=== PATIENT | female | born 1950 | race Two or more races ===

== ENCOUNTER 2017-09-01 09:45 | Outpatient (CLI) | payer BC | END 2017-09-01 23:59 | disposition home or self-care (01) | LOC: WOU 09:45 | PROVIDERS: ATTEND Podiatrist Foot & Ankle Surgery | DX: Z47.81 Encounter for orthopedic aftercare following surgical amputation (principal); Z89.411 Acquired absence of right great toe; E11.40 Type 2 diabetes mellitus with diabetic neuropathy, unspecified; E66.9 Obesity, unspecified; Z68.39 Body mass index [BMI] 39.0-39.9, adult; Z71.3 Dietary counseling and surveillance; Z79.84 Long term (current) use of oral hypoglycemic drugs; Z94.0 Kidney transplant status | CPT/HCPCS: 99205; A6253; A6402; G0463 ==

== ENCOUNTER 2017-09-11 09:55 | Outpatient (CLI) | payer BC | END 2017-09-11 23:59 | disposition home or self-care (01) | LOC: WOU 09:55 | PROVIDERS: ATTEND Podiatrist Foot & Ankle Surgery | DX: Z09 Encounter for follow-up examination after completed treatment for conditions other than malignant neoplasm (principal); Z47.81 Encounter for orthopedic aftercare following surgical amputation; Z89.412 Acquired absence of left great toe; E66.9 Obesity, unspecified; Z68.39 Body mass index [BMI] 39.0-39.9, adult; E11.40 Type 2 diabetes mellitus with diabetic neuropathy, unspecified; Z94.0 Kidney transplant status | CPT/HCPCS: 99213; A6253 ×2; A6402; G0463 ==

== ENCOUNTER 2017-09-17 08:51 | Outpatient (CLI) | payer BC | END 2017-09-17 23:59 | disposition home or self-care (01) | LOC: WOU 08:51 | PROVIDERS: ATTEND Podiatrist Foot & Ankle Surgery | DX: Z47.81 Encounter for orthopedic aftercare following surgical amputation (principal); Z89.412 Acquired absence of left great toe; E11.40 Type 2 diabetes mellitus with diabetic neuropathy, unspecified; E66.9 Obesity, unspecified; Z68.39 Body mass index [BMI] 39.0-39.9, adult; Z94.0 Kidney transplant status; Z79.84 Long term (current) use of oral hypoglycemic drugs | CPT/HCPCS: 99214; A6402; G0463 ==

== ENCOUNTER 2017-10-06 10:14 | Outpatient (CLI) | payer BC | END 2017-10-06 23:59 | disposition home or self-care (01) | LOC: WOU 10:14 | PROVIDERS: ATTEND Podiatrist Foot & Ankle Surgery | DX: Z09 Encounter for follow-up examination after completed treatment for conditions other than malignant neoplasm (principal); E11.40 Type 2 diabetes mellitus with diabetic neuropathy, unspecified; Z89.412 Acquired absence of left great toe; Z94.0 Kidney transplant status; E66.9 Obesity, unspecified; Z68.39 Body mass index [BMI] 39.0-39.9, adult; Z79.84 Long term (current) use of oral hypoglycemic drugs | CPT/HCPCS: G0463 ==

== ENCOUNTER 2018-01-01 08:45 | Outpatient (CLI) | payer MEDICARE, BC | END 2018-01-01 23:59 | disposition home or self-care (01) | LOC: WOU 08:45 | PROVIDERS: ATTEND Podiatrist Foot & Ankle Surgery | DX: Z09 Encounter for follow-up examination after completed treatment for conditions other than malignant neoplasm (principal); Z89.412 Acquired absence of left great toe; E11.40 Type 2 diabetes mellitus with diabetic neuropathy, unspecified; Z94.0 Kidney transplant status; L60.3 Nail dystrophy; E66.9 Obesity, unspecified; Z68.39 Body mass index [BMI] 39.0-39.9, adult | CPT/HCPCS: G0463 ==